=== PATIENT | female | born 1940 | race Caucasian/White ===

== ENCOUNTER 2016-12-21 07:00 | Emergency (ER) | payer MEDICARE, MEDICAID ==
--- NOTE | 2016-12-21 07:30 | ED ---
GI/ HPI - HPI Summary HPI Summary: 76 yr old female with indwelling calloway for urinary retention. She presents here with leakage around the calloway this morning. She had a new one put in two days ago in the [facility]. She came here so that she wouldn't have to wait this morning. She is not feeling ill. She has no pain, fever or chills. No other complaints. - History of Current Complaint Time Seen by Provider: 12/21/16 07:26 Stated Complaint: CATHETER COMPLAINT PMH/Surg Hx/FS Hx/Imm Hx History: Reports: Other Problems/Disorders - urine retention - Immunization History Immunizations Up to Date: Yes - Family History Known Family History: Positive: None - Social History Occupation: Retired Review of Systems Constitutional: Negative Eyes: Negative ENT: Negative Cardiovascular: Negative Positive: other - urine retention, and indwelling calloway that is leaking All Other Systems Reviewed And Are Negative: Yes Physical Exam Triage Information Reviewed: Yes Vital Signs Reviewed: Yes Appearance: Positive: Well-Appearing, No Pain Distress Head/Face: Positive: Normal Head/Face Inspection Eyes: Positive: EOMI Neck: Positive: Nontender Respiratory/Lung Sounds: Positive: Clear to Auscultation, Breath Sounds Present Cardiovascular: Positive: RRR. Negative: Murmur Abdomen Description: Positive: Nontender. Negative: CVA Tenderness (R), CVA Tenderness (L) Neurological: Positive: Sensory/Motor Intact, Alert, Oriented to Person Place, Time, CN Intact II-III Psychiatric: Positive: Normal GIGU Course/Dx - Course Course Of Treatment: 76 yr old requesting her catheter be changed. This is ordered. DC home to follow up with her doctors this coming week. - Diagnoses Provider Diagnoses: Calloway catheter problem Discharge - Discharge Plan Condition: Good Disposition: HOME Patient Education Materials: Calloway Catheter Placement and Care (ED), Chronic Urinary Retention in Women (ED) Referrals: Ana Bauman MD [Primary Care Provider] -
[2016-12-21 07:35] VITALS: BP 205/117
== END 2016-12-21 08:28 | disposition home or self-care (01) ==
LOC: UCCORT 07:00
DX: T83.038A Leakage of other urinary catheter, initial encounter (principal)
CPT/HCPCS: 51702; 99212; G0463

== ENCOUNTER 2016-12-27 21:22 | Emergency (ER) | payer MEDICARE, MEDICAID ==
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
[2016-12-27 22:14] VITALS: BP 205/105
--- NOTE | 2016-12-30 07:10 | ED ---
Progress - Progress Note Progress Note: call patient.(+) ucx. bactrim called in. f/u urology stat. Re-Evaluation - Re-Evaluation First Eval Re-Evaluation Time: 22:21 Change: Worse Comment: attempt to urinate and was unable to do so, is becoming uncomfortable as wants to go but cant Course/Dx - Course Course Of Treatment: 76F presents with leaking from urinary catheter today. She was on the phone when her catheter started to leak on the side of her urethra. She denies any uti symptoms. She denies any fever. She denies any abdominal pain, n/v. She denies any flank pain or hematuria. on exam has urine leaking from urethra. balloon is intact. will have remove catether and try urinating on own. will send urine from bag for culture.u/a shows leuko from bag will not treat for uti at this time. removed catether. patient will try do on own and may not be having urinary retention as this is the third time in past two weeks urgent care and [place] [facility] as come in with this compliant. gave water and patient unable to urinate so will replace calloway. calloway placed by nurses with 16 calloway and got 400cc urine. bp elevated and patient states did not take medication so will have follow up with primary for elevated bp. patient also very anxious so that is probably why blood pressure so high. denies any headache, chest pain, or abdominal pain for signs of hypertensive emergency. patient understands and agrees with plan. - Diagnoses Provider Diagnoses: UTI (urinary tract infection)
[2016-12-30] MEDS ORDERED: Sulfamethox/Trimethoprim DS 800/160* TAB PO SCH (09:00)
== END 2016-12-27 22:50 | disposition home or self-care (01) ==
LOC: UCCORT 21:22
DX: R33.9 Retention of urine, unspecified (principal); T83.038A Leakage of other urinary catheter, initial encounter; I10 Essential (primary) hypertension; Z90.49 Acquired absence of other specified parts of digestive tract
CPT/HCPCS: 51702; 81003; 87077; 87086; 87186; 99211; G0463

== ENCOUNTER 2017-01-01 08:01 | Emergency (ER) | payer MEDICARE, MEDICAID | END 2017-01-01 08:30 | disposition left against medical advice (07) | LOC: UCCORT 08:01 | DX: R39.198 Other difficulties with micturition (principal); Z53.21 Procedure and treatment not carried out due to patient leaving prior to being seen by health care provider ==

== ENCOUNTER 2017-01-05 21:06 | Emergency (ER) | payer MEDICARE, MEDICAID ==
[2017-01-05] MEDS ORDERED: Lidocaine 2% JELLY* 10 ML JELLY TOPICAL ONE (21:25)
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
[2017-01-05 21:29] VITALS: BP 206/119
[2017-01-05] MEDS ORDERED: Lidocaine 2% JELLY* 6 ML JELLY TOPICAL ONE (21:30)
== END 2017-01-05 21:55 | disposition home or self-care (01) ==
LOC: UCCORT 21:06
DX: B37.49 Other urogenital candidiasis (principal); I10 Essential (primary) hypertension
CPT/HCPCS: 99212; A9270-GY; G0463

== ENCOUNTER 2017-01-06 10:27 | Emergency (ER) | payer MEDICARE, MEDICAID ==
[2017-01-06 11:02] VITALS: BP 170/84
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
== END 2017-01-06 11:37 | disposition home or self-care (01) ==
LOC: UCCORT 10:27
DX: N36.9 Urethral disorder, unspecified (principal); Z46.6 Encounter for fitting and adjustment of urinary device; I10 Essential (primary) hypertension
CPT/HCPCS: 99211; G0463